=== PATIENT | male | born 1955 | race Caucasian/White ===

== ENCOUNTER 2017-05-27 14:36 | Emergency (ER) | payer BC, OTHER ==
[2017-05-27] MEDS ORDERED: Sodium Chloride 0.9% 10 ML Syringe FLUSH PRN (14:47)
[2017-05-27] MEDS ORDERED: Nitroglycerin 0.4 MG Tab.SL SL PRN (14:47)
[2017-05-27] MEDS ORDERED: Aspirin 81 MG Tab.Chew PO ONE (14:47)
--- NOTE | 2017-05-27 15:02 | EDM.PDOC ---
ED HPI GENERAL MEDICAL PROBLEM - General Chief Complaint: Upper Extremity Injury/Pain Stated Complaint: CHEST PAIN Time Seen by Provider: 05/27/17 14:45 Source of Information: Reports: Patient History Limitations: Reports: No Limitations - History of Present Illness INITIAL COMMENTS - FREE TEXT/NARRATIVE: 62 yo male with a normal heart cath 4 yrs ago presents with acute onset of L biceps pain that began just as he put a phone down that he had been talking on for some time. 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 Also notes some posterior L shoulder muscle soreness now. Denies SOB, nausea, or diaphoresis. FHx is + for CAD. Onset: Today Onset Date: 05/27/17 Onset Time: 13:10 Duration: Minutes:, Constant Location: Reports: Upper Extremity, Left Quality: Reports: Ache Severity: Moderate Improves with: Reports: Rest Worsens with: Reports: Movement (of the left arm.) Context: Reports: Other (physical exertion yesterday.) Associated Symptoms: Reports: No Other Symptoms Treatments CEMENT RUBBER: Reports: Other (see below) (none) - Related Data Allergies Allergy/AdvReac Type Severity Reaction Status Date / Time No Known Allergies Allergy Verified 09/25/13 19:19 Home Meds: Home Meds Aspirin [Ecotrin] 81 mg PO DAILY #100 tab.ec 09/26/13 [Rx] Past Medical History - Past Health History Medical/Surgical History: Denies Medical/Surgical History Social & Family History - Tobacco Use Years of Tobacco use: 30 Used Tobacco, but Quit: Yes Month Tobacco Last Used: june Second Hand Smoke Exposure: No - Alcohol Use Days Per Week of Alcohol Use: 0 - Recreational Drug Use Recreational Drug Use: No Review of Systems - Review of Systems Review Of Systems: See Below Constitutional: Reports: No Symptoms Nose: Reports: No Symptoms Respiratory: Reports: No Symptoms Cardiovascular: Reports: No Symptoms GI/Abdominal: Reports: No Symptoms Genitourinary: Reports: No Symptoms Musculoskeletal: Reports: Other (L biceps and posterior L shoulder pain) Skin: Reports: No Symptoms Neurological: Reports: No Symptoms Psychiatric: Reports: No Symptoms ED EXAM, GENERAL - Physical Exam Exam: See Below Exam Limited By: No Limitations General Appearance: Alert, WD/WN, No Apparent Distress EKG INTERPRETATION EKG Date: 05/27/17 Time: 14:30 Rate (Beats/Min): 79 [place]: Normal P-Wave: Present QRS: Normal ST-T: Normal QT: Normal Comparison: No Change Course - Orders/Labs/Meds Orders: Active Orders 24 hr Category Date Time Status Cardiac Monitoring [RC] .As Directed Care 05/27/17 14:47 Active EKG Documentation Completion [RC] ASDIRECTED Care 05/27/17 14:46 Active Sodium Chloride 0.9% [Saline Flush] Med 05/27/17 14:47 Active 10 ml FLUSH ASDIRECTED PRN Saline Lock Insert [OM.PC] Routine Oth 05/27/17 14:47 Ordered EKG 12 Lead [EK] Routine Ther 05/27/17 14:46 Ordered Medication Orders Sodium Chloride (Saline Flush) 10 ml FLUSH ASDIRECTED PRN PRN Reason: Keep Vein Open Labs: Laboratory Tests 05/27/17 Range/Units 15:00 Troponin I < 0.01 L (0.02-0.06) NG/ML Meds: Medications Generic Name Dose Route Start Last Admin Trade Name Freq PRN Reason Stop Dose Admin Sodium Chloride 10 ml 05/27/17 14:47 Saline Flush FLUSH ASDIRECTED PRN Keep Vein Open Discontinued Medications Generic Name Dose Route Start Last Admin Trade Name Freq PRN Reason Stop Dose Admin Aspirin 324 mg 05/27/17 14:47 Aspirin PO 05/27/17 14:48 ONETIME ONE Nitroglycerin 0.4 mg 05/27/17 14:47 Nitrostat SL 05/27/17 14:58 Q5M PRN Chest Pain Departure - Departure Time of Disposition: 15:50 Disposition: Home, Self-Care 01 Condition: Good Clinical Impression: Muscle soreness - Discharge Information - My Orders Last 24 Hours: My Active Orders 05/27/17 14:46 EKG Documentation Completion [RC] ASDIRECTED EKG 12 Lead [EK] Routine 05/27/17 14:47 Cardiac Monitoring [RC] .As Directed Sodium Chloride 0.9% [Saline Flush] 10 ml FLUSH ASDIRECTED PRN Saline Lock Insert [OM.PC] Routine - Assessment/Plan Last 24 Hours: My Active Orders 05/27/17 14:46 EKG Documentation Completion [RC] ASDIRECTED EKG 12 Lead [EK] Routine 05/27/17 14:47 Cardiac Monitoring [RC] .As Directed Sodium Chloride 0.9% [Saline Flush] 10 ml FLUSH ASDIRECTED PRN Saline Lock Insert [OM.PC] Routine
[2017-05-27 16:33] VITALS: BP 112/74
== END 2017-05-27 16:00 | disposition home or self-care (01) ==
LOC: FB.ED 14:36
DX: M79.1 Myalgia (principal); Z79.82 Long term (current) use of aspirin; X58.XXXA Exposure to other specified factors, initial encounter
CPT/HCPCS: 36415; 84484; 93005; 99285; A9270